=== PATIENT | male | born 1980 | race Two or more races ===

== ENCOUNTER 2024-07-26 00:41 | Inpatient (IN) | payer MEDICAID, SELFPAY ==
[2024-07-26] VITALS (13 sets, daily range): BP systolic 109–145; BP diastolic 67–88; PULSE 64–117; RESP 14–89; TEMP 36.5–37.2; O2SAT 94–98; BMI 34.9; BMI 37.0
--- NOTE | 2024-07-26 | XR_ITS ---
Examinations: MRI Brain without intravenous contrast. MRA brain without intravenous contrast. MRA carotids without intravenous contrast 3-D vascular reconstructions Date and time of exam: May 23, 2025 0915 hrs. Indications: Onset confusion lethargy left-sided body weakness today, stroke alert Technique: Multiple axial and sagittal images of the brain have been obtained MRA brain carotid images without contrast obtained, including 3-D postprocessing, vascular maximum intensity projection images Findings: Sellaturcica is not enlarged. The optic chiasm and infundibular stalk are not remarkable. Prepontine and interpeduncular cisterns are not enlarged. No localized enlargement of the medulla or martha. Fourth ventricle and cerebellar tonsils normal in position. Subacute hemorrhage is not seen. Fourth ventricle is midline. Mass in the cerebellopontine angle region is not evident. 7th and 8th nerve complexes exhibits symmetry. Globes are symmetrical with no retro-orbital mass. Increased white matter signal not seen Diffusion-weighted images demonstrate no focus of restricted diffusion Mass-effect upon the ventricular system is not identified. MRA carotid images no significant carotid stenoses. MRA brain images no large vessel occlusions Impression: Negative for acute hemorrhage mass effect or midline shift No acute infarct No MR findings diagnostic for demyelinating disease No cerebral large vessel arterial occlusions
--- NOTE | 2024-07-26 01:28 | PD.EDADULT ---
ED General RME/HPI General Chief complaint: General Adult/Misc Complain Stated complaint: BLOOD SUGAR PROBLEMS Time Seen by Provider: 07/26/24 01:29 Arrival date/time: 07/26/24 00:41 RME / HPI RME / HPI narrative: This section includes all my notes and documentations, including HPI, PE, and ED course. Alexander Penn MD HPI: 43yo male with a history of DM presents to the ED for AMS. Per telecommunicator supervisor of the half-way, patient was his normal self at 1600, reporting they noticed at 1930 (about 6 hours ago) that the patient was disoriented and not like his usual self. They checked his alcohol level via a breathalizer, which was negative. No obvious speech or visual requirement. No obvious loss of power in arms or legs. ROS: Unobtainable to obtain ROS due to patient's AMS. Physical Exam: General: Patient is alert. Oriented to person. Disoriented to place and dates and situation. He thought today was December 12. Eyes: Conjunctivae and lids clear. EOMI. PERRL. ENT: No nasal congestion. Neck: Supple. No carotid bruit. No JVD. Heart: RRR. Lungs: No respiratory distress. Good air movement. No rhonchi, wheezing, rales. Abdomen: Soft and nontender. Legs: No clubbing, cyanosis, edema. Skin: Warm and dry. Neuro: Disoriented. Is not able to complete [id number]. No peripheral motor deficits. Equivocal dysarthria and aphasia. I reviewed all diagnostic test results. My interpretation of the EKG is sinus rhythm with no acute ST?T changes. My review of the head CT report is no acute findings. My review of the head/neck CTA report is no acute findings. Blood tests and urine tests remarkable for serum alcohol 251.3. At this point, diagnoses include strokelike symptoms and alcohol intoxication and encephalopathy. Treatment here included NS and ASA. Patient remained stable. I discussed the case with our telehealth neurologist and hospitalist. About the presentation and exam and diagnostics and treatments here. And need of further care in the hospital. Will accept the patient. Alexander Penn MD Related Data Allergies Allergy/AdvReac Type Severity Reaction Status Date / Time No Known Allergies Allergy Verified 07/26/24 00:43 Review of Systems Review of Systems ROS Unobtainable: unobtainable due to mental status ED Exam Narrative Physical exam: As noted in HPI. Course Course Course Narrative: 0129: Stroke alert initiated. Quality Measures none Orders Category Date Time Status Bedside Blood Glucose NOW Care 07/26/24 01:31 Active Blood glucose [Bedside Blood Glucose] NOW Care 07/26/24 00:45 Active Retail Associate NOW Care 07/26/24 01:31 Active Continuous Pulse Oximetry NOW Care 07/26/24 01:31 Completed EKG (ED ONLY) *Do not use* NOW Care 07/26/24 01:31 Completed In and Out Catheter NEEDED Care 07/26/24 01:31 Active Insert IV NOW Care 07/26/24 01:31 Active NIH Stroke Scale now Care 07/26/24 01:31 Active NPO NOW Care 07/26/24 01:31 Active Nurse Swallow Screen x1 Care 07/26/24 01:31 Active Consult to Neurology / Tele-Neurology Routine Cons 07/26/24 01:[address] angio stroke protocol Stat Exams 07/26/24 01:[address] stroke protocol Stat Exams 07/26/24 01:31 Taken EKG (ED Only) Stat Exams 07/26/24 01:31 Ordered Alcohol, Blood Medical Stat Lab 07/26/24 02:11 Completed Arterial Blood Gas Stat Lab 07/26/24 03:08 Completed CBC Stat Lab 07/26/24 02:11 Completed Comprehensive Metabolic Panel Stat Lab 07/26/24 02:11 Completed Drug Screen,Urine Stat Lab 07/26/24 02:50 Completed Magnesium Stat Lab 07/26/24 02:11 Completed Partial Thromboplastin Time Stat Lab 07/26/24 02:11 Completed Prothrombin Time with INR Stat Lab 07/26/24 02:11 Completed Troponin I Stat Lab 07/26/24 02:11 Completed Aspirin Med 07/26/24 02:17 Discontinued 325 mg PO X1 ONE Labetalol IV [Trandate IV] Med 07/26/24 01:30 Active 10 mg IV Q15M PRN Ondansetron Inj [Zofran Inj] Med 07/26/24 01:30 Active 4 mg IV Q4HR PRN Sodium Chloride 0.9% 1000 ml [Ns] 1,000 ml Med 07/26/24 01:30 Active IV Q10H Thiamine Inj [Vitamin B-1 Inj] 100 mg Med 07/26/24 03:21 Discontinued Sodium Chloride 0.9% [Ns] 100 ml IV X1 Oxygen Delivery NOW RT 07/26/24 01:31 Active Vital Signs Vital signs: Vital Signs Temperature 98.3 F 07/26/24 00:55 Pulse Rate 117 H 07/26/24 00:55 Respiratory Rate 20 07/26/24 00:55 Blood Pressure 121/84 07/26/24 00:55 Pulse Oximetry (%) 95 07/26/24 00:55 Oxygen Delivery Method Room Air 07/26/24 00:55 [facility] Patient data External records reviewed:: [facility] previous records (Per chart review, patient has no previous ED visits or admissions to this facility.) Clinical information provided by:: patient Social determinants that could affect healthcare access:: none Patient has the following chronic illnesses:: DM How is presenting disease/condition affected by chronic disease/condition?: uneffected by Evaluation data The following diagnostics were reviewed and interpreted by me:: lab results, radiology exam(s) and EKG tracing(s) (My interpretation of the EKG is: Sinus rhythm (97 bpm) with nonspecific ST-T changes. Alexander Penn MD) Lab and/or radiology exams considered but not ordered:: none Interpretation Summary: Strokelike symptoms and all intoxication and encephalopathy Medications Medications considered but not ordered:: none Medication administrations:: Medication Administration History Acetaminophen (Acetaminophen 325 Mg Tablet) 650 mg PO Q6H PRN PRN Reason: Fever >101.5 Stop: 08/25/24 03:23 Acetaminophen (Acetaminophen 325 Mg Tablet) 650 mg PO Q6H PRN PRN Reason: PAIN SCALE 1-3 (mild Stop: 08/25/24 03:23 Aspirin (Aspirin Ec 81 Mg Tabec) 81 mg PO QDAY [facility] Stop: 08/25/24 08:59 Dextrose (Dextrose 50%-Water Inj 50 Ml Syringe) 25 ml IV Q15MIN PRN PRN Reason: BG 50-70 responsive npo pt Stop: 08/25/24 03:23 Dextrose (Dextrose 50%-Water Inj 50 Ml Syringe) 50 ml IV Q15MIN PRN PRN Reason: BG <50 OR BG <70 & pt unresponsive Stop: 08/25/24 03:23 Folic Acid (Folic Acid 1 Mg Tablet) 1 mg PO QDAY [facility] Stop: 08/28/24 08:59 Folic Acid (Folic Acid Inj 1 Mg/0.2 Ml) 1 mg IVP QDAY [facility] Stop: 07/29/24 03:29 Glucagon (Glucagon Inj 1 Mg Vial) 1 mg IM Q15MIN PRN PRN Reason: BG <70, and no IV access Heparin Sodium (Porcine) (Heparin Sod Inj 5000 Unit/Ml Vial) 5,000 unit SC BID [facility] Stop: 08/09/24 08:59 Sodium Chloride (Ns) 1,000 mls @ 100 mls/hr IV Q10H [facility] Stop: 07/26/24 11:29 Insulin Human Lispro (Insulin Lispro (Admelog) 1 Unit/0.01 Ml Unit) 0 unit SC AC [facility]; Protocol Stop: 08/25/24 07:29 Labetalol HCl (Labetalol Inj 5 Mg/Ml Vial 20 Ml) 10 mg IV Q15M PRN PRN Reason: HYPER Lorazepam (Lorazepam 2 Mg/Ml Vial) 0.5 mg IVP Q4H PRN PRN Reason: CIWA SCORE(2-6) Stop: 07/31/24 03:23 Lorazepam (Lorazepam 2 Mg/Ml Vial) 1 mg IVP Q4H PRN PRN Reason: CIWA SCORE (7-11) Stop: 07/31/24 03:23 Lorazepam (Lorazepam 2 Mg/Ml Vial) 2 mg IVP Q4H PRN PRN Reason: CIWA SCORE (12-16) Stop: 07/31/24 03:23 Nicotine (Nicotine Patch 14 Mg/24 Hr Patch.Td24) 14 mg TOP QDAY [facility] Stop: 08/25/24 04:19 Ondansetron HCl (Ondansetron Inj 2 Mg/Ml Inj 2 Ml) 4 mg IV Q4HR PRN PRN Reason: NAUSEA OR VOMITING Stop: 08/25/24 01:29 Pantoprazole Sodium (Pantoprazole Inj 40 Mg Vial) 40 mg IVP QDAY [facility] Stop: 08/25/24 08:59 Sennosides (Senna Tablet) 1 tab PO QDAY PRN; Protocol PRN Reason: constipation Stop: 08/25/24 03:23 Thiamine HCl (Thiamine 100 Mg Tablet) 100 mg PO QDAY [facility] Stop: 08/28/24 08:59 Thiamine HCl (Thiamine Inj 100 Mg/Ml Vial 2 Ml) 100 mg IVP QDAY [facility] Stop: 08/25/24 08:59 Discontinued Medications Aspirin (Aspirin 325 Mg Tablet) 325 mg PO X1 ONE Stop: 07/26/24 02:18 Thiamine HCl 100 mg/ Sodium (Chloride) 101 mls @ 202 mls/hr IV X1 ONE Stop: 07/26/24 03:50 NS, Aspirin Consultations Consultation(s) initiated? (list below): Yes Consultation #1 (Physician, Specialty, Details): Discussed case with [Dr. Marshall] from teleneurology regarding consultation. Discussed patients ED course, exam findings, labs, and radiology results. States this patient is not a tPA candidate due to LKWT being greater than 4.5 hours. Recommends admitting the patient for a stroke work-up. Time: 02:15 Diagnosis Differential Diagnosis ED Complaint MDM: CVA, brain tumor, Wernicke's encephalopathy, GA, substance influence Most likely diagnosis given after review of the tests above:: Strokelike symptoms, alcohol intoxication, encephalopathy Admission Indicated Admission indicated?: indicated Explain why admission is indicated or not indicated:: Teleneurology recommended admission for stroke work-up. Admission Request Was there a request for admission?: Yes Admission Attestation Admission request attestation: Discussed case with Hospitalist service regarding admission. Discussed patients ED course, exam findings, labs, and radiology results. The Hospitalist [agrees] to accept the patient for admission. Disposition Plan Disposition Plan: Admit Medical Decision Making MDM Narrative MDM Narrative: Scribe Attestation: 07/26/24 - Katie Monzon, am scribing for and in the presence of Dr. Penn. Differential Diagnosis Differential Diagnosis: CVA, brain tumor, Wernicke's encephalopathy, GA, substance influence Lab Data 07/26/24 02:11 07/26/24 02:11 Labs: Lab Results 07/26/24 07/26/24 07/26/24 Range/Units 02:11 02:50 03:08 WBC 7.1 (3.8-10.6) Thou/mm3 RBC 5.05 (4.50-5.90) Miln/mm3 Hgb 14.9 (13.5-16.0) g/dL Hct 44.4 (41.0-53.0) % MCV 88 (80-100) fL MCH 29.5 (25.0-35.0) pg MCHC 33.6 (31.0-37.0) g/dl RDW Std Deviation 40.5 (35.1-43.9) fL Plt Count 248 (140-440) Thou/mm3 Neut % (Auto) 49 (37-80) % Lymph % (Auto) 42 (10-50) % [place] % (Auto) 6 (0-12) % Eos % (Auto) 2 (0-10) % Baso % (Auto) 1 (0-2.5) % Neut # (Auto) 3.5 (1.8-7.7) Thou/mm3 Lymph # (Auto) 3.0 (1.0-4.8) Thou/mm3 [place] # (Auto) 0.4 (0.0-0.8) Thou/mm3 Eos # (Auto) 0.2 (0.0-0.5) Thou/mm3 Baso # (Auto) 0.0 (0.0-0.2) Thou/mm3 Immature Gran # (Auto) 0.02 H (0.00-0.00) Thou/mm3 Absolute Nucleated RBC 0.00 (0.00-0.00) Thou/mm3 Immature Gran % 0 (0-0) % Nucleated RBC % 0 (0) /100 WBC PT 10.8 (9.0-12.2) Seconds INR 1.0 (0.9-1.3) APTT 27.7 (22.0-36.0) Seconds Puncture Site Left Radial ABG pH 7.35 (7.35-7.45) ABG pCO2 45 (32.0-48.0) mmHg ABG pO2 72 L (83-108) mmHg ABG HCO3 25 (20-26) mEq/L ABG O2 Saturation 92 (91-98) % ABG Base Excess -1 (-3-3) FiO2 21 % Sodium 149 H (136-145) mMol/L Potassium 4.2 (3.4-5.1) mMol/L Chloride 113 H (98-107) mMol/L Carbon Dioxide 26.6 (20.0-31.0) mMol/L Anion Gap 9 (7-16) BUN 17 (9-23) mg/dL Creatinine 0.8 (0.6-1.3) mg/dL Estim Creat Clear Calc 145.1 (>60) mL/min eGFR > 60 (60 - ) See Note BUN/Creatinine Ratio 21 H (12-20) Ratio Glucose 108 H (74-106) mg/dL Calculated Osmolality 298 H (275-295) Calcium 9.4 (8.3-10.6) mg/dL Corrected Calcium 9.4 (8.5-10.1) mg/dL Magnesium 2.3 (1.6-2.6) mg/dL Total Bilirubin 0.3 (0.3-1.2) mg/dL AST 19 (0-34) U/L ALT 15 (10-49) U/L Alkaline Phosphatase 116 (46-116) U/L Troponin I < 0.002 (0.0-0.045) ng/mL Total Protein 7.5 (5.7-8.2) gm/dL Albumin 4.6 (3.5-5.0) gm/dL Globulin 2.9 (2.3-3.5) gm/dL Albumin/Globulin Ratio 1.6 (1.2-2.2) Urine Opiates Screen Negative (Negative) Urine Fentanyl Screen Negative (Negative) Ur Barbiturates Screen Negative (Negative) U Amphetamin/Meth Scrn Negative (Negative) U Benzodiazepines Scrn Negative (Negative) U Cocaine Metab Screen Negative (Negative) U Marijuana (THC) Screen Negative (Negative) Ethyl Alcohol 251.3 H (0-10.0) mg/dL Critical Care Time Critical Care Time Critical Care Time: Yes Total Critical Care Time (min.): 45 Attestation: Due to a high probability of clinically significant, life threatening deterioration, the patient required my highest level of preparedness to intervene emergently and I personally spent this critical care time directly and personally managing the patient. This critical care time included obtaining a history; examining the patient; ordering and review of studies; arranging urgent treatment with development of a management plan; evaluation of patient's response to treatment; frequent reassessment; and discussions with family and other providers. It was exclusive of separately billable procedures and treating other patients and teaching time. Alexander Penn MD Discharge Plan Plan Patient Disposition: Admit Acute Care w/in Hospital Problem List Clinical Impression: Stroke-like symptoms, Alcohol intoxication
--- NOTE | 2024-07-26 01:31 | XR_ITS ---
Examination: CTA carotids with intravenous contrast CTA brain, head with intravenous contrast. 2-D sagittal, coronal reconstructions. 3-D reconstructions. Exam date and time: July 26, 2024 0146 hrs. Indications: Stroke alert, onset focal neurologic deficit beginning 6 hours ago CTDI: vol (mGy) 11 DLP: (mGycm) 403 Technique: Multiple CTA axial brain, head carotid images post intravenous contrast injection 75 cc, [id number]. 2-D sagittal, coronal reconstructions. 3-D reconstructions, 3-D post processing including vascular maximum intensity projection images. Low dose protocols were performed. One or more of the following dose reduction techniques were used; automated exposure control, adjustment of the mA and/or KV according to patient size, use of iterative reconstruction technique. Findings: No significant common carotid carotid bifurcation or internal carotid artery stenoses No vertebral artery stenoses No cerebral large vessel arterial occlusions, thrombus dissection or cerebral aneurysm Impression: No significant neck arterial stenoses No cerebral large vessel arterial occlusions
--- NOTE | 2024-07-26 01:31 | EKG_ITS ---
[facility] Test Date: 2024-07-26 Pat Name: AURELIANO DENNEY Department: Room: - Gender: Male Press Reader: : 1980 Requested By: Alexander Pratt Order Number: [id number] Reading MD: Alexander Pratt Measurements Intervals [place] Rate: 88 P: 21 IN: 178 QRS: -6 QRSD: 98 T: -2 QT: 365 QTc: 442 Interpretive Statements SINUS RHYTHM MODERATE VOLTAGE CRITERIA FOR LVH, CONSIDER NORMAL VARIANT [MEETS CRITERIA IN ONE OF: R(aVL), S(V1), R(V5), R(V5/V6)+S(V1)] No previous ECG available for comparison /store/S0/[id number]/[id number].pdf
--- NOTE | 2024-07-26 01:31 | XR_ITS ---
Examination: CT brain head without contrast. 2-D sagittal coronal reconstructions Date and time of exam:July 26, 2024 0140 hrs. Indications: Altered mental status episodes beginning 6 hours ago CTDI: vol (mGy):56.4 DLP: (mGycm):1156 Technique: Multiple CT axial sections of the brain have been obtained, 5 mm slice thickness. Contrast has not been administered. 2-D sagittal, coronal reconstructions have been obtained Low dose protocols were performed. One or more of the following dose reduction techniques were used; automated exposure control, adjustment of the mA and/or KV according to patient size, use of iterative reconstruction technique. Findings: No significant ventricular enlargement. Intra-axial or extra-axial hemorrhage density is not seen. No mass effect or midline shift Basal cisterns are not remarkable. Fourth ventricle is midline. Cranial vault intact. Impression: Negative for acute hemorrhage, mass effect or midline shift Brain MRI follow-up would best assess for demyelinating disease, acute ischemic change
--- NOTE | 2024-07-26 01:34 | PC.NURSE ---
stroke consult Case # [id number]?
--- NOTE | 2024-07-26 02:13 | PC.LAC ---
Initial contact with pt. Back from ct, received report from Miki PRITCHETT. Pt was evaluated by Tele neurologist Dr. Schaefer.
--- NOTE | 2024-07-26 02:21 | PRELIM_ITS ---
CT scan of the head without intravenous contrast (axial sections with sagittal and coronal reformats) July 26, 2024 at 0140 hours Clinical History: Focal neuro deficit, stroke suspected. No prior study is available for comparison. Findings: No evidence of intracranial hemorrhage, mass effect or midline shift. The ventricles and CSF spaces are unremarkable. The calvarium is unremarkable. The mastoid air cells and the visualized paranasal sinuses are clear. Impression: No evidence of intracranial hemorrhage, mass effect or midline shift. Discussion Details: Results verbally communicated to : Dr. Penn at 02:02 AM 07/26/2024 Report Electronically Signed By: Chriss Peraza 07/26/2024 2:20:32 AM [EST]
--- NOTE | 2024-07-26 02:30 | PD.TNEURO ---
Tele Neuro Consultation Consultation Date 07/26/24 Most Recent Vital Signs Last Vital Signs Temp 98.3 F 07/26/24 00:55 Pulse 117 H 07/26/24 00:55 Resp 20 07/26/24 00:55 BP 121/84 07/26/24 00:55 Pulse Ox 95 07/26/24 00:55 O2 Del Method Room Air 07/26/24 00:55 Consultation Narrative [facility] Tele[facility]urology Consult Services Patient Name:???Barrera Ojeda Date of :???1980 Identification Number:??? Date of Service:???07/26/2024 01:32:37 Diagnosis: ?G93.40 - Encephalopathy, unspecified ?I63.89 - Cerebrovascular accident (CVA) due to other mechanism ([facility]) Impression: ?43 yo M who presented for evaluation of altered mental status and trouble speaking. His neurologic exam was notable for lethargy, inattentiveness, disorientation, possible expressive aphasia (though assessment limited due to mental status), mild dysarthria, and left-sided numbness. Though his presentation seems most consistent with a diffuse/generalized process (e.g., toxic/metabolic encephalopathy), presence of possible left-sided deficits does raise concern for focal INSURANCE ADVISOR etiology as well. He is not a candidate for thrombolytics as LKW >4.5 hours, and there is no proximal LVO on my review of the vessel imaging (radiology report pending). Recommend empiric initiation of ASA and admission for further workup as discussed below. Our recommendations are outlined below. Recommendations: ? Stroke/Telemetry Floor ? Neuro Checks ? Bedside Swallow Eval ? DVT Prophylaxis ? IV Fluids, Normal Saline ? Head of Bed 30 Degrees ? Euglycemia and Avoid Hyperthermia (PRN Acetaminophen) ?Please load with ASA 325 mg followed by 81 mg daily pending additional workup ?Toxic/metabolic and infectious workup per primary team ?MRI brain w/wo contrast to evaluate for acute stroke and INSURANCE ADVISOR inflammatory process Sign Out: ? Discussed with Emergency Department Provider Advanced Imaging: CTA Head and Neck Completed. LVO:No Patient in not a candidate for ALY Metrics: Last Known Well: 07/25/2024 16:00:00 Dispatch Time: 07/26/2024 01:32:36 Arrival Time: 07/26/2024 00:43:00 Initial Response Time: 07/26/2024 01:48:53Symptoms: altered mental status and trouble speaking. Initial patient interaction: 07/26/2024 01:55:09 NIHSS Assessment Completed: 07/26/2024 02:04:30Patient is not a candidate for Thrombolytic. Thrombolytic Medical Decision: 07/26/2024 02:04:33Patient was not deemed candidate for Thrombolytic because of following reasons: LKW outside 4.5 hr window. . I personally Reviewed the CT Head and it Showed no acute process Primary Provider Notified of Diagnostic Impression and Management Plan on: 07/26/2024 02:18:21 History of Present Illness:Patient is a 43 year old Male. Patient was brought by private transportation with symptoms of altered mental status and trouble speaking. Per discussion with ED provider, patient was last known normal around 4 PM on 07/25 when his retirement housekeeper caregiver saw him. He was later noted to be sluggish and drunk-appearing as if he were under the influence. He was noted to have trouble speaking and answering simple questions. He also reported right toe numbness, though had trouble describing if this is new or chronic for him. He denied any history of similar symptoms in the past. Further history was limited due to patient's mental status. Past Medical History: ?Diabetes Mellitus Medications: Anticoagulant use:??Unknown Antiplatelet use:?Unknown Reviewed EMR for current medications Allergies:? NKDA Social History: Unable To Obtain Due To Patient Status :?Patient Is Confused Family History: Family History Cannot Be Obtained Because:Patient Is Confused ROS :?ROS Cannot Be Obtained Because:? Patient Is Confused Past Surgical History: Past Surgical History Cannot Be Obtained Because: Patient Is Confused Examination: BP(121/84),?Pulse(117),?Blood Glucose(119) 1A: Level of Consciousness - Requires repeated stimulation to arouse?+ 2 1B: Ask Month and Age - Could Not Answer Either Question Correctly?+ 2 1C: Blink Eyes & Squeeze Hands - Performs Both Tasks?+ 0 2: Test Horizontal Extraocular Movements - Normal?+ 0 3: Test Visual Palmer - No Visual Loss?+ 0 4: Test Facial Palsy (Use Grimace if Obtunded) - Normal symmetry?+ 0 5A: Test Left Arm Motor Drift - No Drift for 10 Seconds?+ 0 5B: Test Right Arm Motor Drift - No Drift for 10 Seconds?+ 0 6A: Test Left Leg Motor Drift - No Drift for 5 Seconds?+ 0 6B: Test Right Leg Motor Drift - No Drift for 5 Seconds?+ 0 7: Test Limb Ataxia (FNF/Heel-Barber) - No Ataxia?+ 0 8: Test Sensation - Mild-Moderate Loss: Less Sharp/More Dull?+ 1 9: Test Language/Aphasia - Mild-Moderate Aphasia: Some Obvious Changes, Without Significant Limitation?+ 1 10: Test Dysarthria - Mild-Moderate Dysarthria: Slurring but can be understood?+ 1 11: Test Extinction/Inattention - No abnormality?+ 0 NIHSS Score:?7 NIHSS Free Text :?Left face and hemibody hypoesthesia; frequently inattentive, has to be encouraged multiple times to answer simple questions due to lethargy Pre-Morbid Modified [place] Scale:Unable to assess Spoke with :?Dr. Penn This consult was conducted in real time using interactive audio and video technology. Patient was informed of the technology being used for this visit and agreed to proceed. Patient located in hospital and provider located at home/office setting. Patient is being evaluated for possible acute neurologic impairment and high probability of imminent or life-threatening deterioration. I spent total of 35 minutes providing care to this patient, including time for face to face visit via telemedicine, review of medical records, imaging studies and discussion of findings with providers, the patient and/or family. Dr Saqib Marshall [facility] For Inpatient follow-up with [facility] physician please call [facility] at . As we are not an outpatient service for any post hospital discharge needs please contact the hospital for assistance. If you have any questions for the [facility] physicians or need to reconsult for clinical or diagnostic changes please contact us via [facility] at .
--- NOTE | 2024-07-26 02:49 | PRELIM_ITS ---
CT angiogram of the head and neck with intravenous contrast (axial sections with sagittal and coronal reformats) July 26, 2024 0146 hours Clinical History: Focal neuro deficit, stroke suspected No prior study is available for comparison. Findings: Head: The internal carotid, middle and anterior cerebral arteries are patent bilaterally. The intracranial vertebral arteries are patent. The vertebrobasilar junction, basilar and posterior cerebral arteries are patent. No evidence of large vessel occlusion, critical stenosis or aneurysm. Neck: The aortic arch to the extent visualized as well as the origins of the right brachiocephalic, left common carotid, and left subclavian arteries are patent. The common carotid arteries, carotid bulbs, and internal and external carotid arteries are patent. The origins of the vertebral arteries are unremarkable. The vertebral arteries are patent. No evidence of vascular occlusion, critical stenosis, dissection or aneurysm. The soft tissues of the neck are unremarkable. Straightening of the cervical spine is identified, which may be related to muscle spasm. Mild degenerative changes are noted in the visualized spine. Impression: Head: No evidence of large vessel occlusion, critical stenosis or aneurysm. Neck: No evidence of vascular occlusion, critical stenosis, dissection or aneurysm. Discussion Details: Results verbally communicated to : Dr. Penn at 02:41 AM 07/26/2024 Report Electronically Signed By: Chriss Peraza 07/26/2024 2:49:09 AM [EST]
[2024-07-26 03:01] LABS: Alanine Aminotransferase 15 U/L (10-49); Albumin, Serum 4.6 gm/dL (3.5-5.0); Albumin/Globulin Ratio 1.6 (1.2-2.2); Alcohol, Blood Medical 251.3 mg/dL (0-10.0); Alkaline Phosphatase 116 U/L (46-116); Anion Gap 9 (7-16); Aspartate Amino Transferase 19 U/L (0-34); BUN/Creatinine Ratio 21 Ratio (12-20); Bilirubin,Total 0.3 mg/dL (0.3-1.2); Blood Urea Nitrogen 17 mg/dL (9-23); Calcium 9.4 mg/dL (8.3-10.6); Calcium (Corrected) 9.4 mg/dL (8.5-10.1); Carbon Dioxide 26.6 mMol/L (20.0-31.0); Chloride 113 mMol/L (98-107); Creatinine (Component) 0.8 mg/dL (0.6-1.3); Estimated Creatinine Clearance 145.1 mL/min (>60); Globulin 2.9 gm/dL (2.3-3.5); Glucose 108 mg/dL (74-106); Magnesium 2.3 mg/dL (1.6-2.6); Osmolality,Calculated 298 (275-295); Potassium 4.2 mMol/L (3.4-5.1); Sodium 149 mMol/L (136-145); Total Protein 7.5 gm/dL (5.7-8.2); Troponin I < 0.002 ng/mL (0.0-0.045); eGFR > 60 See Note
[2024-07-26 03:08] LABS: Partial Thromboplastin Time 27.7 Seconds (22.0-36.0); Prothrombin Time 10.8 Seconds (9.0-12.2)
[2024-07-26 03:20] LABS: Amphetamine/Methamp Scrn,U Negative (Negative); Barbiturate Screen,Urine Negative (Negative); Benzodiazepines Screen,Urine Negative (Negative); Benzoylecgonine Screen, Ur Negative (Negative); Fentanyl Screen,Urine Negative (Negative); Opiate Screen,Urine Negative (Negative); THC Screen,Urine Negative (Negative)
[2024-07-26 03:20] LABS: Basophils % (Auto) 1 % (0-2.5); Eosinophils # (Auto) 0.2 Thou/mm3 (0.0-0.5); Eosinophils % (Auto) 2 % (0-10); Hematocrit 44.4 % (41.0-53.0); Hemoglobin 14.9 g/dL (13.5-16.0); Immature Granulocytes % (Auto) 0 % (0-0); Immature Granulocytes Auto 0.02 Thou/mm3 (0.00-0.00); Lymphocytes % (Auto) 42 % (10-50); Mean Corpuscular HGB Conc 33.6 g/dl (31.0-37.0); Mean Corpuscular Hemoglobin 29.5 pg (25.0-35.0); Mean Corpuscular Volume 88 fL (80-100); Monocytes # (Auto) 0.4 Thou/mm3 (0.0-0.8); Monocytes % (Auto) 6 % (0-12); Neutrophils # (Auto) 3.5 Thou/mm3 (1.8-7.7); Neutrophils % (Auto) 49 % (37-80); Nucleated Red Blood Cell % 0 /100 WBC (0); Platelet Count 248 Thou/mm3 (140-440); RDW Standard Deviation 40.5 fL (35.1-43.9); Red Blood Count 5.05 Miln/mm3 (4.50-5.90); White Blood Count 7.1 Thou/mm3 (3.8-10.6)
[2024-07-26 03:33] LABS: Base Excess -1 (-3-3); HCO3 25 mEq/L (20-26); Inspired Oxygen, FIO2 21 %; O2 Saturation 92 % (91-98); PCO2 45 mmHg (32.0-48.0); PO2 72 mmHg (83-108); pH, Arterial 7.35 (7.35-7.45)
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
[2024-07-26 03:37] LABS: Allen Test Performed/OK; Puncture Site Left Radial
--- NOTE | 2024-07-26 03:39 | XR_ITS ---
Examination: AP chest single view Technique one AP portable upright chest single view Exam date and time: July 24, 2024 0417 hrs. Indications: Altered mental status today. Findings: No aspiration pneumonia Minor prominence left ventricle Reduced inspiratory effort The osseous structures are intact Impression: Negative for aspiration pneumonia
--- NOTE | 2024-07-26 04:19 | XR_ITS ---
Examination: Abdomen sonogram, Limited Date and time of exam: July 26, 2024 0515 hrs. Indications: Bilateral upper abdominal tenderness today, history cholecystectomy Technique: Real-time cobos scale transabdominal sonographic images of the upper abdomen obtained. Findings: Absent gallbladder Normal common bile duct 0.5 Pancreas obscured by bowel gas Liver 18.6 cm no focal liver lesions Normal hepatopedal portal venous flow Patent IVC Impression: Normal common bile duct Mild hepatomegaly no focal liver lesions
--- NOTE | 2024-07-26 04:19 | XR_ITS ---
Examination: Left knee 2 views Technique one AP lateral left knee 2 views Exam date and time: July 24, 2024 0440 hrs. Indications: Patient fell today with injury to the knee, knee pain. Findings: No fracture or dislocation. No foreign body Impression: No fracture or dislocation
[2024-07-26] MEDS: FOLIC ACID INJ 1 MG/0.2 ML IVP (04:23)
[2024-07-26] MEDS: Aspirin 325 MG TABLET PO (04:23)
[2024-07-26] MEDS: THIAMINE INJ 100 MG in SODIUM CHLORIDE 0.9% 100 ML 202 MG IV (04:25)
[2024-07-26 04:58] LABS: Hepatitis A Antibody IgM Non Reactive (Non React); Hepatitis B Core Antibody IgM Non Reactive (Non React); Hepatitis B Surface Antigen Non Reactive (Non React); Hepatitis C Antibody Non Reactive (Non React)
[2024-07-26 05:22] LABS: Basophils % (Auto) 1 % (0-2.5); Eosinophils # (Auto) 0.2 Thou/mm3 (0.0-0.5); Eosinophils % (Auto) 3 % (0-10); Hematocrit 44.5 % (41.0-53.0); Hemoglobin 14.8 g/dL (13.5-16.0); Immature Granulocytes % (Auto) 0 % (0-0); Immature Granulocytes Auto 0.01 Thou/mm3 (0.00-0.00); Lymphocytes # (Auto) 2.6 Thou/mm3 (1.0-4.8); Lymphocytes % (Auto) 41 % (10-50); Mean Corpuscular HGB Conc 33.3 g/dl (31.0-37.0); Mean Corpuscular Hemoglobin 29.4 pg (25.0-35.0); Mean Corpuscular Volume 88 fL (80-100); Monocytes # (Auto) 0.4 Thou/mm3 (0.0-0.8); Monocytes % (Auto) 6 % (0-12); Neutrophils % (Auto) 49 % (37-80); Nucleated Red Blood Cell % 0 /100 WBC (0); Platelet Count 251 Thou/mm3 (140-440); RDW Standard Deviation 41.2 fL (35.1-43.9); Red Blood Count 5.04 Miln/mm3 (4.50-5.90); White Blood Count 6.2 Thou/mm3 (3.8-10.6)
[2024-07-26] MEDS: SODIUM CHLORIDE 0.9% 1000 ML 1,000 ML 100 ML IV (05:56)
[2024-07-26 05:59] LABS: Glucose Estimated Average 131 mg/dL (80-131); Hemoglobin A1C 6.2 % Hgb (4.8-6.0)
[2024-07-26 06:18] LABS: Alanine Aminotransferase 14 U/L (10-49); Albumin, Serum 4.5 gm/dL (3.5-5.0); Albumin/Globulin Ratio 1.5 (1.2-2.2); Alkaline Phosphatase 112 U/L (46-116); Anion Gap 8 (7-16); Aspartate Amino Transferase 17 U/L (0-34); BUN/Creatinine Ratio 20 Ratio (12-20); Bilirubin,Total 0.3 mg/dL (0.3-1.2); Blood Urea Nitrogen 16 mg/dL (9-23); Calcium 9.3 mg/dL (8.3-10.6); Calcium (Corrected) 9.3 mg/dL (8.5-10.1); Carbon Dioxide 26.4 mMol/L (20.0-31.0); Cardiac Risk Estimate 2.8 RATIO (4.0-6.7); Chloride 113 mMol/L (98-107); Cholesterol 173 mg/dL (132-200); Creatinine (Component) 0.8 mg/dL (0.6-1.3); Estimated Creatinine Clearance 145.1 mL/min (>60); Free T4 (Free Thyroxine) 1.22 ng/dL (0.89-1.76); Glucose 114 mg/dL (74-106); HDL Cholesterol 62 mg/dL (40-60); LDL Cholesterol,Calculated 81 mg/dL (0-130); Magnesium 2.2 mg/dL (1.6-2.6); Osmolality,Calculated 294 (275-295); Sodium 147 mMol/L (136-145); Thyroid Stimulating Hormone 1.25 uIU/mL (0.55-4.78); Total Protein 7.5 gm/dL (5.7-8.2); Triglycerides 152 mg/dL (30-150); eGFR > 60 See Note
[2024-07-26] MEDS: THIAMINE 100 MG TABLET PO (09:59)
[2024-07-26] MEDS: ASPIRIN EC 81 MG TABEC PO (09:59)
[2024-07-26] MEDS: PANTOPRAZOLE INJ 40 MG VIAL IVP (09:59)
[2024-07-26] MEDS: HEPARIN SOD INJ 5000 UNIT/ML VIAL SC ×2 (09:59→20:18)
--- NOTE | 2024-07-26 10:20 | PCS.ST ---
Pt taking PO meds without difficulty and passed NSS. Awake/alert and communicative. Recommend PO diet. No formal swallow evaluation warranted.
--- NOTE | 2024-07-26 11:02 | XR_ITS ---
Examination: CT cervical spine without contrast 2-D sagittal reconstructions 2-D coronal reconstructions 3-D reconstructions. Exam date and time:July 26, 2024 at 1238 hrs. Indications: Onset neck pain today CTDI:vol (mGy) 15.1 DLP: (mGycm) 425 Technique: Multiple 2 mm axial sections of the cervical spine have been obtained. The coronal and sagittal reconstructions have been obtained. 3-D reconstructions have been obtained. Low dose protocols were performed. One or more of the following dose reduction techniques were used; automated exposure control, adjustment of the mA and/or KV according to patient size, use of iterative reconstruction technique. Findings: Axial sections demonstrate intact base of the skull. C1 exhibit satisfactory relationship to the odontoid. No acute cervical vertebral body fracture seen. Alignment posterior spinous processes satisfactory. Mild disc narrowing C4-C5, C5-C6 C5-C6 advanced left neural foraminal stenosis Impression: No acute cervical fracture. Mild degenerative disc disease C4-C5, C5-C6 C5-C6 advanced left neural foraminal stenosis
[2024-07-26] MEDS: ATORVASTATIN CALCIUM 20 MG TABLET 40 MG PO (20:20)
[2024-07-26] MEDS: ACETAMINOPHEN 325 MG TABLET 650 MG PO (20:20)
[2024-07-27] VITALS (8 sets, daily range): BP systolic 118–147; BP diastolic 75–99; PULSE 64–94; RESP 13–28; TEMP 36.3–37.1; O2SAT 94–98; BMI 36.8
[2024-07-27 05:57] LABS: Basophils % (Auto) 0 % (0-2.5); Eosinophils # (Auto) 0.2 Thou/mm3 (0.0-0.5); Eosinophils % (Auto) 3 % (0-10); Hematocrit 44.4 % (41.0-53.0); Hemoglobin 14.9 g/dL (13.5-16.0); Immature Granulocytes % (Auto) 0 % (0-0); Immature Granulocytes Auto 0.01 Thou/mm3 (0.00-0.00); Lymphocytes # (Auto) 2.1 Thou/mm3 (1.0-4.8); Lymphocytes % (Auto) 30 % (10-50); Mean Corpuscular HGB Conc 33.6 g/dl (31.0-37.0); Mean Corpuscular Hemoglobin 30.2 pg (25.0-35.0); Mean Corpuscular Volume 90 fL (80-100); Monocytes # (Auto) 0.6 Thou/mm3 (0.0-0.8); Monocytes % (Auto) 8 % (0-12); Neutrophils # (Auto) 4.2 Thou/mm3 (1.8-7.7); Neutrophils % (Auto) 59 % (37-80); Nucleated Red Blood Cell % 0 /100 WBC (0); Platelet Count 217 Thou/mm3 (140-440); RDW Standard Deviation 40.7 fL (35.1-43.9); Red Blood Count 4.93 Miln/mm3 (4.50-5.90); White Blood Count 7.1 Thou/mm3 (3.8-10.6)
[2024-07-27 06:11] LABS: Partial Thromboplastin Time 28.7 Seconds (22.0-36.0)
[2024-07-27 06:43] LABS: Alanine Aminotransferase 11 U/L (10-49); Albumin, Serum 4.2 gm/dL (3.5-5.0); Albumin/Globulin Ratio 1.5 (1.2-2.2); Alkaline Phosphatase 98 U/L (46-116); Anion Gap 8 (7-16); Aspartate Amino Transferase 16 U/L (0-34); BUN/Creatinine Ratio 31 Ratio (12-20); Bilirubin,Total 0.7 mg/dL (0.3-1.2); Blood Urea Nitrogen 22 mg/dL (9-23); Calcium 9.2 mg/dL (8.3-10.6); Calcium (Corrected) 9.2 mg/dL (8.5-10.1); Carbon Dioxide 27.1 mMol/L (20.0-31.0); Chloride 107 mMol/L (98-107); Creatinine (Component) 0.7 mg/dL (0.6-1.3); Estimated Creatinine Clearance 165.3 mL/min (>60); Globulin 2.8 gm/dL (2.3-3.5); Glucose 95 mg/dL (74-106); Magnesium 2.2 mg/dL (1.6-2.6); Osmolality,Calculated 286 (275-295); Sodium 142 mMol/L (136-145); eGFR > 60 See Note
[2024-07-27] MEDS: Milk Of Magnesia Susp 30 ML UDC PO (09:34)
[2024-07-27] MEDS: THIAMINE 100 MG TABLET PO (09:34)
[2024-07-27] MEDS: NICOTINE PATCH 14 MG/24 HR PATCH.TD24 TOP (09:34)
[2024-07-27] MEDS: HEPARIN SOD INJ 5000 UNIT/ML VIAL SC ×2 (09:34→20:08)
[2024-07-27] MEDS: ASPIRIN EC 81 MG TABEC PO (09:34)
[2024-07-27] MEDS: PANTOPRAZOLE INJ 40 MG VIAL IVP (09:34)
--- NOTE | 2024-07-27 12:21 | PD.RESDS ---
Planned Discharge Date 07/27/24 DS: Providers Provider Date of admission: 07/26/24 03:24 Primary care physician: Physician No Primary/Family Admitting Provider: Joe Garcia MD Attending Provider on Admission: Joe Garcia MD Consults: 07/26/24 01:31 Consult to Neurology / Tele-Neurology Routine Comment: Consulting Provider: [facility] 07/26/24 03:30 Referral Speech Therapy Routine Comment: 07/26/24 03:31 Consult to Neurology / Tele-Neurology Stat Comment: Consulting Provider: Ehsan Germain Referral Physical Therapy Routine Comment: Physician Instructions: Attending Provider on DC: Shawn Gutiérrez MD Discharging Provider: Lea Yo MD DS: Diagnosis Problem List Completed Was Problem List Reviewed/Reconciled?: Yes Hospital Course Hospital Course Hospital course: Patient is a 43-year-old male with a past medical history of diabetes on metformin and alcohol use who presented to the ED on 07/26/2024 with altered mental status. Per manager retail of [facility], the patient was said to have been found confused and disoriented, alcohol level was checked her breathalyzer and was found to be high, he also had some expressive aphasia and he was brought to the ED. For concern of CVA in the ED, stroke protocol was initiated, the patient was outside of the window for tPA but NIHSS was 7. Teleneuro was consulted and recommended to admit the patient for further workup of CVA. Head CT/CTA was done which showed no acute changes and MRI was also done which was negative. The patient was started on aspirin 81 mg daily. On examination, the patient continued to have left hemiparesis as well as numbness and the CT cervical spine was done which showed advanced left neuroforaminal stenosis C5-C6. Today, the patient is clinically and hemodynamically stable, weakness on the left is improving but still has some numbness. He is medically cleared for discharge. He is recommended to follow-up with his PCP or the [facility] within 1 week of discharge as well as for referral to Ortho/neurosurgery. #Acute encephalopathy-resolved #Acute CVA ruled out #Left-sided weakness #Foraminal stenosis #Alcohol use disorder Discharge instructions: Follow up with your PCP within 1 week. If you dont have one, [facility] [address]. Call [phone] to make an appointment for at 2pm You will need an Orthopedic or Neurosurgeon referral for evaluation of foraminal stenosis Continue folic acid and thiamine Avoid alcohol intake as much as possible Return to the ED if your symptoms worsen Case was discussed with Dr Alvarado PGY-2 and attending physician, Dr Marla Yo MD PGY-1 Disclaimer: This note was dictated by speech recognition. Minor errors in horizontal drill operator may be present due to voice recognition software. Status at Discharge Overall status at discharge: patient is progressing back to baseline Time Spent with Patient Time attestation: Total time spent providing and/or coordinating discharge services: Time spent: Greater than 30 minutes Exam Vital Signs Temp Pulse Resp BP Pulse Ox O2 Del Method O2 Flow Rate 98.7 F 79 20 147/92 H 95 Nasal Cannula 2 07/27/24 12:07/27/24 12:07/27/24 12:07/27/24 12:07/27/24 12:07/27/24 12:07/27/24 12:00 Narrative Exam GENERAL: AAOX3 NEURO: PARKING LINE PAINTER grossly intact, moves extremities x4. Left upper and lower extremity with strength 5/5. Left upper extremity strength-4/5, lower extremity-5/5. No intention tremors, no nystagmus, sensation slightly decreased on the left. HEENT: Moist mucosa. Eyes open, symmetrical, & clear CARDIO: No chest pain on palpation. Heart RRR, no obvious murmurs PULM: No noted coughing/dyspnea. Lungs CTA B/L, no R/W/R GI: Abdomen soft, nondistended, no pain on palpation. BSx4 URO/CHANGE BOOTH ATTENDANT:: No further abnormalities noted. SKIN/MSK/EXT: No wounds/rashes/edema/amputations, no pain on palpation. Pedal pulses present B/L Discharge Plan Plan Patient Disposition: Home w/HOME HEALTH Patient condition on transfer: Stable Care Plan Goals: Follow up with your PCP within 1 week. If you dont have one, come to the [facility] at [address], [place]. Call [phone] to make an appointment for at 2pm You will need an Orthopedic or Neurosurgeon referral for evaluation of foraminal stenosis Continue folic acid and thiamine Avoid alcohol intake as much as possible Return to the ED if your symptoms worsen Prescriptions/Referrals Prescriptions/Med Rec: New folic acid 1 mg Tablet 1 mg PO QDAY Qty: 30 0RF thiamine mononitrate (vit B1) 100 mg Tablet 100 mg PO QDAY 30 Days Qty: 30 0RF Continued metformin 500 mg tablet 500 mg PO BID Patient Comments: take 1 tablet by mouth twice a day with meals Referrals: No Primary/Family,Physician [Primary Care Provider] - Patient/Caregiver Discharge Instructions Other Discharge Activity Instructions:: Follow up with your PCP within 1 week. If you dont have one, [facility] [address], [place]. Call [phone] to make an appointment for at 2pm You will need an Orthopedic or Neurosurgeon referral for evaluation of foraminal stenosis Continue folic acid and thiamine Avoid alcohol intake as much as possible Return to the ED if your symptoms worsen Education Materials: ED Alcohol Intoxication Print Language: Citizen Of [place] Stand Alone Forms: Kimmy Award Info., Patient Portal Info Letter Discharge Order Discharge Orders: Discharge (Routine); Ordered 07/28/24 Ordered By: Julio Alvarado Quality Discharge Quality Measures VTE prophylaxis Attestestation MD Attestation I reviewed above note and agree with findings and plans. I have also personally examined the patient with medicine team and went over assessment and plan with medical team including employee communications intern and resident physician.
[2024-07-27] MEDS: ATORVASTATIN CALCIUM 20 MG TABLET 40 MG PO (20:07)
[2024-07-27] MEDS: MELATONIN 3 MG TABLET 6 MG PO (21:14)
--- NOTE | 2024-07-27 22:44 | PD.VPROG1 ---
Telemedicine visit statement This visit was conducted with the use of interactive audio and video telecommunications system that permits real time communication between the patient and the provider. Patient's verbal consent for virtual visit was obtained on 07/27/24 at 2244. Documentation for date of: 07/27/24 Subjective Subjective Interval history: Patient was seen in telemetry. No new symptoms reported. He is back to his baseline, tolerating oral diet well and slept well last night Virtual exam Vital Signs Temp Pulse Resp BP Pulse Ox O2 Del Method O2 Flow Rate 98.0 F 92 17 138/92 H 94 L Room Air 1 07/27/24 20:00 07/27/24 20:00 07/27/24 20:00 07/27/24 20:00 07/27/24 20:00 07/27/24 20:00 07/27/24 17:54 Objective Labs 07/28/24 04:51 07/28/24 04:51 Labs: Laboratory Results - last 24 hr 07/27/24 05:18 WBC 7.1 RBC 4.93 Hgb 14.9 Hct 44.4 MCV 90 MCH 30.2 MCHC 33.6 RDW Std Deviation 40.7 Plt Count 217 D Neut % (Auto) 59 Lymph % (Auto) 30 Sabine % (Auto) 8 Eos % (Auto) 3 Baso % (Auto) 0 Neut # (Auto) 4.2 Lymph # (Auto) 2.1 Sabine # (Auto) 0.6 Eos # (Auto) 0.2 Baso # (Auto) 0.0 Immature Gran # (Auto) 0.01 H Absolute Nucleated RBC 0.00 Immature Gran % 0 Nucleated RBC % 0 PT 11.0 INR 1.0 APTT 28.7 Sodium 142 Potassium 4.0 Chloride 107 Carbon Dioxide 27.1 Anion Gap 8 BUN 22 Creatinine 0.7 Estim Creat Clear Calc 165.3 eGFR > 60 BUN/Creatinine Ratio 31 H Glucose 95 Calculated Osmolality 286 Calcium 9.2 Corrected Calcium 9.2 Phosphorus 4.0 Magnesium 2.2 Total Bilirubin 0.7 AST 16 ALT 11 Alkaline Phosphatase 98 Total Protein 7.0 Albumin 4.2 Globulin 2.8 Albumin/Globulin Ratio 1.5 ABG Interpretation ABG results: 07/26/24 03:08 ABG pH 7.35 ABG pCO2 45 ABG pO2 72 L ABG HCO3 25 ABG O2 Saturation 92 ABG Base Excess -1 Assessment & Plan Problem List (1) Alcohol intoxication: Status: Acute Assessment and plan: Resolved Advised alcohol cessation Continue with thiamine folate and a healthy diet Stable for discharge (2) Stroke-like symptoms: Status: Resolved Assessment and plan: Reassurance given to the patient regarding the negative workup including MRI brain CT CT angiogram and echocardiogram.
[2024-07-28] VITALS: BP 117/82; PULSE 82; PULSE 85; RESP 20; TEMP 36.2; O2SAT 94
--- NOTE | 2024-07-28 03:29 | ECHO_ITS ---
Transthoracic Echo Report Ht (in): 68 Wt (lb): 244 Exam Location: Echo Lab Status: Inpatient Spudder: AMADOU Hart^^^^ Indications: Procedure Performed: BP: 138 / 88 HR: 67 Technical Quality: Good MEASUREMENTS (Male / Female) Normal Values 2D ECHO LV Diastolic Diameter PLAX 4.8 cm 4.2 - 5.9 / 3.9 - 5.3 cm LV Systolic Diameter PLAX 3.2 cm IVS Diastolic Thickness 1.0 cm 0.6 - 1.0 / 0.6 - 0.9 cm LVPW Diastolic Thickness 0.9 cm 0.6 - 1.0 / 0.6 - 0.9 cm LV Relative Wall Thickness 0.4 LVOT Diameter 2.2 cm Aortic Root Diameter 3.6 cm LA Systolic Diameter LX 4.0 cm 3.0 - 4.0 / 2.7 - 3.8 cm LV Ejection Fraction MOD 4C 71.5 % LV Cardiac Index MOD 4C 3078.6 cm?/min?m? LV Ejection Fraction 4C AL 72.5 % LV Cardiac Index 4C AL 3296.3 cm?/min?m? LV Ejection Fraction MOD 2C 59.5 % LV Cardiac Index MOD 2C 678.4 cm?/min?m? LV Ejection Fraction 2C AL 61.1 % LV Cardiac Index 2C AL 714.1 cm?/min?m? LA Volume Index 23.2 cm?/m? 16 - 28 cm?/m? Ascending Aorta Diameter 3.3 cm DOPPLER AV Peak Velocity 122.5 cm/s AV Peak Gradient 6.0 mmHg AV Mean Gradient 3.0 mmHg AV Velocity Time Integral 22.0 cm AI Peak Velocity 200.0 cm/s AI Peak Gradient 16.0 mmHg AI Pressure Half Time 527.5 ms LVOT Peak Velocity 98.3 cm/s LVOT Peak Gradient 3.9 mmHg LVOT Velocity Time Integral 24.4 cm LVOT Cardiac Index 2643.9 cm?/min?m? AV Area Cont Eq vti 4.2 cm? AV Area Cont Eq pk 3.1 cm? MV Area PHT 3.7 cm? Mitral E Point Velocity 67.9 cm/s Mitral A Point Velocity 66.5 cm/s Mitral E to A Ratio 1.0 LV E' Lateral Velocity 10.4 cm/s Mitral E to LV E' Lateral Ratio 6.5 LV E' Septal Velocity 7.8 cm/s Mitral E to LV E' Septal Ratio 8.7 TR Peak Velocity 255.7 cm/s TR Peak Gradient 26.1 mmHg FINDINGS Left Ventricle Normal left ventricular size, wall thickness, systolic function with no obvious regional wall motion abnormalities. Normal left ventricular diastolic filling pattern for age. The ejection fraction is visually estimated at 65-70 %. Right Ventricle The right ventricle is normal in size and systolic function. The estimated right ventricular systolic pressure, 32 mmHg. Left Atrium The left atrium is normal by two-dimensional, color flow and Doppler imaging with no structural abnormalities, no thrombus formation present. Right Atrium The right atrium is normal by two-dimensional imaging, color flow and Doppler imaging with no structural abnormalities, no thrombus formation present. Atrial Septum The interatrial septum is normal to color flow Doppler and agitated saline imaging. Aorta The aorta is normal by two-dimensional, color flow and Doppler interrogation. Mitral Valve Mild mitral regurgitation. Aortic Valve Structurally normal aortic valve. Mild aortic valve regurgitation. Tricuspid Valve There is mild tricuspid valve regurgitation. Pulmonic Valve Trivial pulmonic valve regurgitation. . Vessels The pulmonary artery appears normal. The inferior vena cava pulmonary and hepatic veins appear normal. Pericardium The pericardium is normal by two-dimensional imaging. There is no significant pericardial effusion. CONCLUSIONS indication: Echo w/ Bubble study LV appears normal with EF of 60-65% RV appears normal with estimated RVSPof 32 mmHg IAS is normal to color flow doppler and agitated saline imaging NO PFO OR SHUNTS Trace mitral and trace tricuspid regurgitation Casandra Fernandez (Electronically Signed) Final Date: 28 July 2024 12:36
[2024-07-28 03:51] VITALS: BP 120/82; PULSE 68; RESP 14; TEMP 36.3; O2SAT 94
[2024-07-28 04:00] VITALS: PULSE 69
[2024-07-28 05:47] LABS: Basophils % (Auto) 0 % (0-2.5); Eosinophils # (Auto) 0.3 Thou/mm3 (0.0-0.5); Eosinophils % (Auto) 4 % (0-10); Hematocrit 46.5 % (41.0-53.0); Hemoglobin 15.6 g/dL (13.5-16.0); Immature Granulocytes % (Auto) 0 % (0-0); Immature Granulocytes Auto 0.02 Thou/mm3 (0.00-0.00); Lymphocytes # (Auto) 2.1 Thou/mm3 (1.0-4.8); Lymphocytes % (Auto) 30 % (10-50); Mean Corpuscular HGB Conc 33.5 g/dl (31.0-37.0); Mean Corpuscular Hemoglobin 29.8 pg (25.0-35.0); Mean Corpuscular Volume 89 fL (80-100); Monocytes # (Auto) 0.5 Thou/mm3 (0.0-0.8); Monocytes % (Auto) 7 % (0-12); Neutrophils # (Auto) 4.2 Thou/mm3 (1.8-7.7); Neutrophils % (Auto) 58 % (37-80); Nucleated Red Blood Cell % 0 /100 WBC (0); Platelet Count 169 Thou/mm3 (140-440); RDW Standard Deviation 40.4 fL (35.1-43.9); Red Blood Count 5.24 Miln/mm3 (4.50-5.90); White Blood Count 7.2 Thou/mm3 (3.8-10.6)
[2024-07-28 06:20] LABS: Alanine Aminotransferase 11 U/L (10-49); Albumin, Serum 4.2 gm/dL (3.5-5.0); Albumin/Globulin Ratio 1.4 (1.2-2.2); Alkaline Phosphatase 113 U/L (46-116); Anion Gap 7 (7-16); Aspartate Amino Transferase 14 U/L (0-34); BUN/Creatinine Ratio 33 Ratio (12-20); Bilirubin,Total 0.5 mg/dL (0.3-1.2); Blood Urea Nitrogen 23 mg/dL (9-23); Calcium 9.5 mg/dL (8.3-10.6); Calcium (Corrected) 9.5 mg/dL (8.5-10.1); Chloride 108 mMol/L (98-107); Creatinine (Component) 0.7 mg/dL (0.6-1.3); Estimated Creatinine Clearance 165.3 mL/min (>60); Glucose 104 mg/dL (74-106); Magnesium 2.3 mg/dL (1.6-2.6); Osmolality,Calculated 290 (275-295); Potassium 4.8 mMol/L (3.4-5.1); Sodium 144 mMol/L (136-145); Total Protein 7.2 gm/dL (5.7-8.2); eGFR > 60 See Note
[2024-07-28 06:51] VITALS: PULSE 85; RESP 15; RESP 95
[2024-07-28 08:00] VITALS: BP 137/90; PULSE 61; PULSE 73; RESP 14; TEMP 36.2; O2SAT 96
[2024-07-28] MEDS: PANTOPRAZOLE INJ 40 MG VIAL IVP (08:10)
[2024-07-28] MEDS: ASPIRIN EC 81 MG TABEC PO (08:10)
[2024-07-28] MEDS: NICOTINE PATCH 14 MG/24 HR PATCH.TD24 TOP (08:10)
[2024-07-28] MEDS: THIAMINE 100 MG TABLET PO (08:10)
[2024-07-28] MEDS: HEPARIN SOD INJ 5000 UNIT/ML VIAL SC (08:11)
[2024-07-28 12:00] VITALS: BP 129/94; PULSE 65; PULSE 70; RESP 15; TEMP 36.4; O2SAT 97
--- NOTE | 2024-07-28 13:10 | PD.RESPRO ---
Documentation for date of: 07/28/24 Subjective Subjective Interval history: Patient was seen and examined at bedside. No acute overnight events. Patient was set for discharge yesterday however discharge was delayed, he will be discharged today. Exam Vital Signs Temp Pulse Resp BP Pulse Ox O2 Del Method O2 Flow Rate 97.6 F 65 15 129/94 H 97 Room Air 1 07/28/24 12:00 07/28/24 12:00 07/28/24 12:00 07/28/24 12:07/28/24 12:07/28/24 12:07/27/24 17:54 Narrative Exam Gen: Well-developed and well-nourished. HEENT: NCAT, PERRLA, EOMI, MMM, anicteric conjunctivae. CVS: normal S1 and S2. RRR. No M/R/G. Resp: CTA B/L. No rhonchi, rales, crackles or wheezing. Abd: soft, non-tender, non-distended. BS+ in all 4 quadrants. MSK: Good ROM in BUE & BLE. No edema or rash. Neuro: CN II-XII grossly intact. Strength 5/5 in BUE & BLE. Alert and oriented x3. Psych: appropriate mood and affect. Objective Labs 07/28/24 04:51 07/28/24 04:51 Labs: Laboratory Results - last 24 hr 07/28/24 04:51 WBC 7.2 RBC 5.24 Hgb 15.6 Hct 46.5 MCV 89 MCH 29.8 MCHC 33.5 RDW Std Deviation 40.4 Plt Count 169 D Neut % (Auto) 58 Lymph % (Auto) 30 [place] % (Auto) 7 Eos % (Auto) 4 Baso % (Auto) 0 Neut # (Auto) 4.2 Lymph # (Auto) 2.1 [place] # (Auto) 0.5 Eos # (Auto) 0.3 Baso # (Auto) 0.0 Immature Gran # (Auto) 0.02 H Absolute Nucleated RBC 0.00 Immature Gran % 0 Nucleated RBC % 0 Sodium 144 Potassium 4.8 D Chloride 108 H Carbon Dioxide 29.0 Anion Gap 7 BUN 23 Creatinine 0.7 Estim Creat Clear Calc 165.3 eGFR > 60 BUN/Creatinine Ratio 33 H Glucose 104 Calculated Osmolality 290 Calcium 9.5 Corrected Calcium 9.5 Phosphorus 4.0 Magnesium 2.3 Total Bilirubin 0.5 AST 14 ALT 11 Alkaline Phosphatase 113 Total Protein 7.2 Albumin 4.2 Globulin 3.0 Albumin/Globulin Ratio 1.4 ABG Interpretation ABG results: 07/26/24 03:08 ABG pH 7.35 ABG pCO2 45 ABG pO2 72 L ABG HCO3 25 ABG O2 Saturation 92 ABG Base Excess -1 Quality Measures Quality Measures VTE prophylaxis Assessment & Plan Assessment Current Active Medications: Generic Name Dose Route Start Last Admin Trade Name Du PRN Reason Stop Dose Admin Acetaminophen 650 mg 07/26/24 03:24 Acetaminophen 325 Mg Tablet PO 08/25/24 03:23 Q6H PRN Fever >101.5 Acetaminophen 650 mg 07/26/24 03:24 07/26/24 20:20 Acetaminophen 325 Mg Tablet PO 08/25/24 03:23 650 mg Q6H PRN Administration PAIN SCALE 1-3 (mild Aspirin 81 mg 07/26/24 09:00 07/28/24 08:10 Aspirin Ec 81 Mg Tabec PO 08/25/24 08:59 81 mg QDAY JENNIFER Administration Atorvastatin Calcium 40 mg 07/26/24 21:00 07/27/24 20:07 Atorvastatin Calcium 20 Mg Tablet PO 08/25/24 20:59 40 mg HS JENNIFER Administration Dextrose 25 ml 07/26/24 03:24 Dextrose 50%-Water Inj 50 Ml Syringe IV 08/25/24 03:23 Q15MIN PRN BG 50-70 responsive npo pt Dextrose 50 ml 07/26/24 03:24 Dextrose 50%-Water Inj 50 Ml Syringe IV 08/25/24 03:23 Q15MIN PRN BG <50 OR BG <70 & pt unresponsive Folic Acid 1 mg 07/29/24 09:00 Folic Acid 1 Mg Tablet PO 08/28/24 08:59 QDAY JENNIFER Glucagon 1 mg 07/26/24 03:24 Glucagon Inj 1 Mg Vial IM Q15MIN PRN BG <70, and no IV access Heparin Sodium (Porcine) 5,000 unit 07/26/24 09:00 07/28/24 08:11 Heparin Sod Inj 5000 Unit/Ml Vial SC 08/09/24 08:59 5,000 unit BID JENNIFER Administration Insulin Human Lispro 0 unit 07/26/24 07:30 07/28/24 12:01 Insulin Lispro (Admelog) 1 Unit/0.01 Ml Unit SC 08/25/24 07:29 Not Given AC JENNIFER Protocol Labetalol HCl 10 mg 07/26/24 01:30 Labetalol Inj 5 Mg/Ml Vial 20 Ml IV Q15M PRN HYPER Lorazepam 0.5 mg 07/26/24 03:24 Lorazepam 2 Mg/Ml Vial IVP 07/31/24 03:23 Q4H PRN CIWA SCORE(2-6) Lorazepam 1 mg 07/26/24 03:24 Lorazepam 2 Mg/Ml Vial IVP 07/31/24 03:23 Q4H PRN CIWA SCORE (7-11) Lorazepam 2 mg 07/26/24 03:24 Lorazepam 2 Mg/Ml Vial IVP 07/31/24 03:23 Q4H PRN CIWA SCORE (12-16) Nicotine 14 mg 07/26/24 04:20 07/28/24 08:10 Nicotine Patch 14 Mg/24 Hr Patch.Td24 TOP 08/25/24 04:19 14 mg QDAY JENNIFER Administration Ondansetron HCl 4 mg 07/26/24 01:30 Ondansetron Inj 2 Mg/Ml Inj 2 Ml IV 08/25/24 01:29 Q4HR PRN NAUSEA OR VOMITING Pantoprazole Sodium 40 mg 07/26/24 09:00 07/28/24 08:10 Pantoprazole Inj 40 Mg Vial IVP 08/25/24 08:59 40 mg QDAY JENNIFER Administration Sennosides 1 tab 07/26/24 03:24 Senna Tablet PO 08/25/24 03:23 QDAY PRN constipation Protocol Thiamine HCl 100 mg 07/26/24 09:00 07/28/24 08:10 Thiamine 100 Mg Tablet PO 08/25/24 08:59 100 mg QDAY JENNIFER Administration Plan This patient is a 43-year-old male with past medical history of diabetes to the ED on 05/25/2025 with chief complaint of altered mental status and left-sided numbness with expressive aphasia and dysarthria. Patient was his normal state at 16 00 and noticed to have confusion and disorientation at 1930. Patient was not a candidate for thrombolytics as patient was out of window for tPA for more than 4.5 hours and there is no proximal LVO based on teleneuro recommendations. NIHSS score was 7 on admission. Admitted for acute encephalopathy likely due to stroke workup and alcohol use disorder. #Acute encephalopathy, resolved. #Stroke ruled out. ?Patient presented with altered mental status and left-sided numbness of both upper and lower extremity with dysarthria and expressive aphasia x 1 day ago coming [facility] Patient was accompanied with Farhat who is operational commercial property manager at [employer]. He reports that patient was in normal state at 16 00 and noticed to be not oriented to time and place and was found confused. ? Stroke alert was initiated and teleneuro was consulted. NIHSS score 7. Patient was out of window for tPA symptoms were more than 4.5 hours. ? He was also found to have elevated blood alcohol levels to 251. Troponin I was negative. U tox was negative. ? Symptoms for left-sided numbness persisted dysarthria has improved. Currently AOx3. ? In the ED patient received aspirin 325 mg x 1 bolus. Vitals were stable. - MRI brain STROKE protocol negative. - Echocardiogram with bubble study negative. Plan: -continue on aspirin 81 mg once daily and atorvastatin 40 mg at bedtime. -Consulted neurologist for further recommendations, appreciate it. -CIWA protocol #Alcohol abuse disorder. ? Patient reported that he drinks liquor every day moderately. ? Blood alcohol level 251 ? LFTs unremarkable. Right upper quadrant tenderness was elicited on abdominal examination Plan: ? Thiamine and folic acid with IV CIWA protocol ? relocation services specialist referral ? Advised to stop drinking alcohol and risks and complications were explained to the patient regarding alcohol abuse #Active smoker. ? Patient actively smokes 2 packs of cigarette every day. Plan ? nicotine patch and advised to stop. #Hx of DM2. ?Patient takes metformin for blood sugar management. Plan: ? Insulin sliding scale Accu-Cheks. ? Hypoglycemia protocol in place. ? Ordered A1c. Health maintenance: Diet: carb consistent diet. GI prophylaxis: Protonix 40 mg IV daily. DVT prophylaxis: Heparin subcut twice daily. CODE STATUS: Full code. Disposition: Patient is admitted for further workup and management of acute encephalopathy likely related to alcohol abuse disorder. Plan of care discussed with attending Dr. Gutiérrez. Julio Alvarado MD, PGY 2. Disclaimer: This note was dictated by speech recognition. Minor errors in underground utility locator may be present due to voice recognition software. Attending Provider Attestation/Addendum I reviewed above note and agree with findings and plans. I have also personally examined the patient with medicine team and went over assessment and plan with medical team including record label intern and resident physician.
--- NOTE | 2024-07-28 13:56 | PC.SS ---
Barrera Ojeda is 43 year old male admitted to [facility] for Alcohol Use and Stroke. SS conducted bedside contact with the patient to complete initial assessment and to discuss discharge planning.? SW used all precautionary measures to complete initial. Role and reason for the contact was explained to Barrera. Pt is alert and oriented times 4. Pt gave verbal authorization for Jesus Alberto, friend and soon to be roommate, to be present while assessment was conducted. Patient has been at residential treatment center with [facility] for last nine months. Pt had set back due to some personal situation that has recently occurred. Pt will be going to stay with friend Jesus Alberto at [address] [place] [address]. Pt does not have a cell phone and asked to contact Jesus Alberto at [phone]. Pt identifies Wendy Hunter, sister, as his surrogate decision maker. Pt states prior to hospitalization he ?is able to complete ??ADL?s independently does not use DME nor O2. Pt stated if HH is needed he did not have a preference. Pt confirmed no history of mental health; and last use of alcohol was Sunday. Pts PCP goes to [facility] and does not have name of but OK to use Dr. Brown. Pharmacy of choice is [facility] but could change to RX in [place]. Discharge options discussed and pt will go home with friend, Jesus Alberto who will provide transportation. No further intervention required at this time, manager social work would be available to address any further concerns. DC Plan: Home Contact: sister Weinberg, Address: [address] [place] [address] PCP: Dr Kevin GAONA
--- NOTE | 2024-07-28 17:36 | PC.SS ---
late entry: KANA spoke with Tez, registration to update address to [address] [place] [address], contact number [phone]
--- NOTE | 2024-07-29 00:03 | PD.VPROG1 ---
Telemedicine visit statement This visit was conducted with the use of interactive audio and video telecommunications system that permits real time communication between the patient and the provider. Patient's verbal consent for virtual visit was obtained on 07/29/24 at 0003. Documentation for date of: 07/29/24 Subjective Subjective Interval history: Patient was seen in telemetry. No new symptoms reported. He is back to his baseline, tolerating oral diet well and slept well last Virtual exam Vital Signs Temp Pulse Resp BP Pulse Ox O2 Del Method O2 Flow Rate 97.6 F 65 15 129/94 H 97 Room Air 1 07/28/24 12:00 07/28/24 12:00 07/28/24 12:00 07/28/24 12:00 07/28/24 12:00 07/28/24 12:00 07/27/24 17:54 Objective Labs 07/28/24 04:51 07/28/24 04:51 Labs: Laboratory Results - last 24 hr 07/28/24 04:51 WBC 7.2 RBC 5.24 Hgb 15.6 Hct 46.5 MCV 89 MCH 29.8 MCHC 33.5 RDW Std Deviation 40.4 Plt Count 169 D Neut % (Auto) 58 Lymph % (Auto) 30 [place] % (Auto) 7 Eos % (Auto) 4 Baso % (Auto) 0 Neut # (Auto) 4.2 Lymph # (Auto) 2.1 [place] # (Auto) 0.5 Eos # (Auto) 0.3 Baso # (Auto) 0.0 Immature Gran # (Auto) 0.02 H Absolute Nucleated RBC 0.00 Immature Gran % 0 Nucleated RBC % 0 Sodium 144 Potassium 4.8 D Chloride 108 H Carbon Dioxide 29.0 Anion Gap 7 BUN 23 Creatinine 0.7 Estim Creat Clear Calc 165.3 eGFR > 60 BUN/Creatinine Ratio 33 H Glucose 104 Calculated Osmolality 290 Calcium 9.5 Corrected Calcium 9.5 Phosphorus 4.0 Magnesium 2.3 Total Bilirubin 0.5 AST 14 ALT 11 Alkaline Phosphatase 113 Total Protein 7.2 Albumin 4.2 Globulin 3.0 Albumin/Globulin Ratio 1.4 ABG Interpretation ABG results: 07/26/24 03:08 ABG pH 7.35 ABG pCO2 45 ABG pO2 72 L ABG HCO3 25 ABG O2 Saturation 92 ABG Base Excess -1 Assessment & Plan Problem List (1) Alcohol intoxication: Status: Acute Assessment and plan: Resolved Advised alcohol cessation Continue with thiamine folate and a healthy diet Stable for discharge (2) Stroke-like symptoms: Status: Resolved Assessment and plan: Reassurance given to the patient regarding the negative workup including MRI brain CT CT angiogram and echocardiogram.
== END 2024-07-28 15:10 | disposition home or self-care (01) | DRG 52 ==
LOC: SERX 03:25 → SERHOLD 04:08 → S2NX 18:52
PROVIDERS: Student in an Organized Health Care Education/Training Program; Admitting Provider Internal Medicine; Emergency Provider Emergency Medicine; PCP Family Medicine; Visit Provider Internal Medicine
DX: G93.40 Encephalopathy, unspecified (principal); R47.01 Aphasia; F10.129 Alcohol abuse with intoxication, unspecified; M48.02 Spinal stenosis, cervical region; F17.210 Nicotine dependence, cigarettes, uncomplicated; G81.94 Hemiplegia, unspecified affecting left nondominant side; E11.9 Type 2 diabetes mellitus without complications; R47.1 Dysarthria and anarthria; M25.562 Pain in left knee; R05.9 Cough, unspecified; I10 Essential (primary) hypertension; Z79.84 Long term (current) use of oral hypoglycemic drugs; Y90.8 Blood alcohol level of 240 mg/100 ml or more; Z79.899 Other long term (current) drug therapy; Z79.82 Long term (current) use of aspirin
CPT/HCPCS: 36415; 36600; 70450; 70496; 70498; 70544; 71045; 72125; 73560; 76705; 80053; 80061; 80074; 80307; 80320; 82803; 83036; 83735; 84100; 84439; 84443; 84484; 85025; 85610; 85730; 93005; 93306; 96361; 96365; 96372; 96375; 97161; 99291; A4649; J1643; J2470; J3411; J3490; J7030; J7050; Q9967; A9270; G0480

== ENCOUNTER 2024-11-22 15:10 | Emergency (ER) | payer MEDICAID, SELFPAY ==
[2024-11-22] VITALS (10 sets, daily range): BP systolic 116–135; BP diastolic 75–78; PULSE 76–92; RESP 16–96; TEMP 36.7; O2SAT 91–97; BMI 39.5
--- NOTE | 2024-11-22 16:21 | XR_ITS ---
Examination: AP chest single view Technique one AP portable semiupright chest single view Date and time: November 22, 2024 1649 hours INDICATIONS: Onset chest pain today. FINDINGS: Mild enlargement cardiac contour. Mild to moderate vascular congestion. No lobar pneumonia or pulmonary edema. Mild osteopenia IMPRESSION: Mild to moderate vascular congestion. No lobar pneumonia or pulmonary edema
--- NOTE | 2024-11-22 16:21 | EKG_ITS ---
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
[2024-11-22 16:57] LABS: Basophils % (Auto) 0 % (0-2.5); Eosinophils # (Auto) 0.2 Thou/mm3 (0.0-0.5); Eosinophils % (Auto) 2 % (0-10); Hematocrit 51.2 % (41.0-53.0); Immature Granulocytes % (Auto) 0 % (0-0); Immature Granulocytes Auto 0.01 Thou/mm3 (0.00-0.00); Lymphocytes # (Auto) 3.7 Thou/mm3 (1.0-4.8); Lymphocytes % (Auto) 46 % (10-50); Mean Corpuscular HGB Conc 35.2 g/dl (31.0-37.0); Mean Corpuscular Volume 85 fL (80-100); Monocytes # (Auto) 0.4 Thou/mm3 (0.0-0.8); Monocytes % (Auto) 5 % (0-12); Neutrophils # (Auto) 3.8 Thou/mm3 (1.8-7.7); Neutrophils % (Auto) 47 % (37-80); Nucleated Red Blood Cell % 0 /100 WBC (0); Platelet Count 233 Thou/mm3 (140-440); Red Blood Count 6.01 Miln/mm3 (4.50-5.90); White Blood Count 8.1 Thou/mm3 (3.8-10.6)
[2024-11-22 17:15] LABS: B-Type Natriuretic Peptide < 20 pg/mL (0-100)
--- NOTE | 2024-11-22 17:20 | PD.EDADULT ---
ED General RME/HPI General Chief complaint: Alcohol Stated complaint: WEAKNESS Time Seen by Provider: 11/22/24 15:42 Arrival date/time: 11/22/24 15:10 Limitations: no limitations RME / HPI RME / HPI narrative: DR. HEATON MAIN ED EVALUATION: 43 year old male alcoholism presents to the Emergency Department after found by police wandering the streets. Patient is an alcoholic and had a drink 2 hours ago; patient does not remember why he was found by police walking in the streets. Patient complains of generalized weakness onset 3 days. No nausea or vomiting. no other symptoms reported this time. Patient has history of diabetes and is not taking care of their diet. Related Data Home Medications ?Medication ?Instructions ?Recorded ?Confirmed metformin 500 mg tablet 500 mg PO BID 07/26/24 07/26/24 Previous Rx's ?Medication ?Instructions ?Recorded folic acid 1 mg tablet 1 mg PO QDAY #30 tabs 07/27/24 Allergies Allergy/AdvReac Type Severity Reaction Status Date / Time No Known Allergies Allergy Verified 11/22/24 15:24 Review of Systems Review of Systems Systems Reviewed: All systems reviewed, normal except as documented Past Medical History Past Medical History ENDOCRINE: Positive Diabetes Mellitus Type 2 Social History SMOKING STATUS: Current every day smoker ALCOHOL: Current ALCOHOL LAST INTAKE: Hours (ago) (2) ED Exam General Limitations: Present no limitations General appearance: Present alert and in no apparent distress Head Head exam: Present atraumatic, normocephalic and normal inspection Eye Eye exam: Present normal appearance, PERRL and EOMI ENT ENT exam: Present normal exam, normal oropharynx and mucous membranes moist Neck Neck exam: Present normal inspection, full ROM and trachea midline Chest Chest inspection: Present normal inspection and symmetric chest wall rise Respiratory Respiratory exam: Present normal lung sounds bilaterally Cardiovascular Cardiovascular exam: Present regular rate, normal rhythm and normal heart sounds Abdominal Exam Abdominal exam: Present soft and normal bowel sounds Extremities Exam Extremities exam: Present normal inspection and full ROM Back Exam Back exam: Present normal inspection and full ROM Neurological Exam Neurological exam: Present alert, oriented X3 and CN II-XII intact Psychiatric Psychiatric exam: Present normal affect and normal mood Skin Skin exam: Present warm, dry, intact and normal color Course Quality Measures none Orders Category Date Time Status Surgical Services Director STAT Care 11/22/24 16:21 Active Continuous Pulse Oximetry ONCE Care 11/22/24 16:21 Active EKG (ED ONLY) *Do not use* NOW Care 11/22/24 16:21 Completed Insert IV STAT Care 11/22/24 16:21 Active EKG (ED Only) Stat Exams 11/22/24 16:21 Draft XR chest 1V portable Stat Exams 11/22/24 16:21 Taken Alcohol, Blood Medical Stat Lab 11/22/24 16:36 Completed B-Type Natriuretic Peptide Stat Lab 11/22/24 16:36 Completed CBC Stat Lab 11/22/24 16:36 Received Comprehensive Metabolic Panel Stat Lab 11/22/24 16:36 Completed Drug Screen,Urine Stat Lab 11/22/24 16:22 Ordered Troponin I Stat Lab 11/22/24 16:36 Completed Folic Acid Med 11/22/24 16:22 Discontinued 1 mg PO X1 ONE Multivitamin. Med 11/22/24 16:22 Discontinued 15 ml PO X1 ONE Sodium Chloride 0.9% 500 ml [Ns] 500 ml Med 11/22/24 16:21 Discontinued IV 999 mls/hr Thiamine Inj [Vitamin B-1 Inj] Med 11/22/24 16:22 Discontinued 100 mg IM X1 ONE Oxygen Delivery NOW RT 11/22/24 16:21 Active Vital Signs Vital signs: Vital Signs Temperature 98.0 F 11/22/24 15:12 Pulse Rate 92 11/22/24 15:12 Respiratory Rate 18 11/22/24 15:12 Blood Pressure 135/75 H 11/22/24 15:12 Pulse Oximetry (%) 96 11/22/24 15:12 Oxygen Delivery Method Room Air 11/22/24 15:12 Discharge Plan Prescriptions/Referrals Prescriptions/Med Rec: No Action metformin 500 mg tablet 500 mg PO BID Patient Comments: take 1 tablet by mouth twice a day with meals folic acid 1 mg Tablet 1 mg PO QDAY Qty: 30 0RF Referrals: No Primary/Family,Physician [Primary Care Provider] - In 1 week Patient/Caregiver Discharge Instructions Print Language: Mongolian MDM Clinical Information Provided by patient Medical Records Reviewed [facility] Meds/Rx Considered, not Ordered None Labs/Rad/Tests considered, not Ordered None Chronic Illness/Social Conditions Add or document further as needed: Patient is an alcoholic. Patient has history of diabetes and is not taking care of their diet. EKG EKG Interpretation narrative: My interpretation: EKG performed at 1626 hours, sinus rhythm, rate 84, no STEMI Medication Administration(s) Medication Administration History Discontinued Medications Folic Acid (Folic Acid 1 Mg Tablet) 1 mg PO X1 ONE Stop: 11/22/24 16:23 Sodium Chloride (Ns) 500 mls @ 999 mls/hr IV .Q31M ONE Stop: 11/22/24 16:51 Multivitamins/Minerals (Multivitamin 15 Ml Udc) 15 ml PO X1 ONE Stop: 11/22/24 16:23 Thiamine HCl (Thiamine Inj 100 Mg/Ml Vial 2 Ml) 100 mg IM X1 ONE Stop: 11/22/24 16:23 Diagnosis Differential diagnosis: Poorly controlled DM, dehydration, alcoholism Dispositon Disposition: other (Patient signout to the shift nurse manager provider.) Disposition comments: No final disposition plan at this time, still pending diagnostic tests.
[2024-11-22] MEDS: FOLIC ACID 1 MG TABLET PO (17:33)
[2024-11-22] MEDS: MULTIVITAMIN 15 ML UDC PO (17:33)
[2024-11-22] MEDS: SODIUM CHLORIDE 0.9% 500 ML 500 ML 999 ML IV (17:35)
[2024-11-22 17:37] LABS: Alanine Aminotransferase 26 U/L (10-49); Albumin, Serum 4.8 gm/dL (3.5-5.0); Albumin/Globulin Ratio 1.8 (1.2-2.2); Alcohol, Blood Medical 300.3 mg/dL (0-10.0); Alkaline Phosphatase 104 U/L (46-116); Anion Gap 14 (7-16); Aspartate Amino Transferase 37 U/L (0-34); BUN/Creatinine Ratio 9 Ratio (12-20); Bilirubin,Total 0.6 mg/dL (0.3-1.2); Blood Urea Nitrogen 7 mg/dL (9-23); Calcium 8.7 mg/dL (8.3-10.6); Calcium (Corrected) 8.7 mg/dL (8.5-10.1); Carbon Dioxide 22.3 mMol/L (20.0-31.0); Chloride 111 mMol/L (98-107); Creatinine (Component) 0.8 mg/dL (0.6-1.3); Estimated Creatinine Clearance 150.1 mL/min (>60); Globulin 2.7 gm/dL (2.3-3.5); Glucose 105 mg/dL (74-106); Osmolality,Calculated 290 (275-295); Potassium 3.8 mMol/L (3.4-5.1); Sodium 147 mMol/L (136-145); Total Protein 7.5 gm/dL (5.7-8.2); Troponin I < 0.020 ng/mL (0.0-0.045); eGFR > 60 See Note
[2024-11-22] MEDS: THIAMINE INJ 100 MG/ML VIAL 2 ML IM (17:38)
--- NOTE | 2024-11-22 18:08 | PD.EDADDENDU ---
Emergency Room Addendum <Vania Melo - Last Filed: 11/22/24 18:59> Addendum Narrative: I took over the care from previous shift physician at 6 PM on 11/22/2024. See previous notes for complete H & P and ED course. I reviewed all diagnostic test results. Blood tests and urine tests Diagnoses include: Treatment here included Not yet done: I discussed the case with our hospitalist. About the presentation and exam and diagnostics and treatments here. And need of further care in the hospital. Will accept the patient. Not yet done: Based on my best medical judgment, made decision no further evaluation or treatment indicated at this time. Patient understands and agrees to the discharge instructions customized and printed, see below. Alexander Penn MD <Alexander Penn MD - Last Filed: 11/22/24 19:00> Addendum Narrative: I took over the care from previous shift physician at 6 PM on 11/22/2024. See previous notes for complete H & P and ED course. Before I had a chance to review his ED course and diagnostic tests and before my evaluation, I was told the patient eloped. Alexander Penn MD
--- NOTE | 2024-11-22 18:51 | PC.NURSE ---
Pt removed own IV. Pt applied Pressure Dressing. Pt and a friend came to the Nurses station and refused to wait for Paperwork. Pt refused to wait or discuss treatment any furthe. ER notified that PT eloped.
== END 2024-11-22 18:55 | disposition left against medical advice (07) ==
PROVIDERS: Emergency Medicine; Emergency Provider Emergency Medicine
DX: R53.1 Weakness (principal); E11.9 Type 2 diabetes mellitus without complications; R09.89 Other specified symptoms and signs involving the circulatory and respiratory systems
CPT/HCPCS: 36415; 71045; 80053; 80307; 80320; 83880; 84484; 85025; 93005; 96360; 96372; 99284; J3411; J7040; A9270; G0480